=== PATIENT | male | born 1940 | race Caucasian/White ===

== ENCOUNTER 2017-10-05 12:38 | Outpatient (CLI) | payer MEDICARE, OTHER | END 2017-10-05 12:39 | disposition home or self-care (01) | LOC: BICMRI 12:38 | PROVIDERS: ATTEND General Practice | DX: M75.102 Unspecified rotator cuff tear or rupture of left shoulder, not specified as traumatic (principal); M12.9 Arthropathy, unspecified; S46.212A Strain of muscle, fascia and tendon of other parts of biceps, left arm, initial encounter ==

== ENCOUNTER 2018-07-10 12:49 | Outpatient (CLI) | payer MEDICARE ==
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
== END 2018-07-10 12:50 | disposition home or self-care (01) ==
LOC: TBSIIMAG 12:49
PROVIDERS: ATTEND Neurological Surgery
DX: M54.2 Cervicalgia (principal); M47.892 Other spondylosis, cervical region
CPT/HCPCS: 72040

== ENCOUNTER 2018-12-26 07:40 | Day surgery (SDC) | payer MEDICARE ==
[2018-12-25 10:50] VITALS: BMI 28.0
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
[2018-12-26] MEDS ORDERED: Fentanyl 100 MCG/2 ML VIAL ONE (08:01)
[2018-12-26] MEDS ORDERED: Levofloxacin 500 mg/D5W 100 ml Premix Bag ONE (08:40)
[2018-12-26] MEDS ORDERED: Clindamycin/D5W 900 mg/50 ml Premix Bag ONE (08:40)
[2018-12-26 08:57] LABS: Anion Gap 13 mmol/L (10-20); BUN (Urea Nitrogen) 25 mg/dL (8.4-25.7); Calc. Creatinine Clearance 76 mL/min (70-130); Calcium 10.1 mg/dL (7.8-10.44); Carbon Dioxide 25 mmol/L (23-31); Chloride 105 mmol/L (98-107); Estimated GFR-MDRD 80; Glucose 106 mg/dL (83-110); Potassium 4.6 mmol/L (3.5-5.1); Sodium 138 mmol/L (136-145)
[2018-12-26] MEDS ORDERED: Tamsulosin HCl 0.4 MG CAP ONE (10:23)
--- NOTE | 2018-12-26 13:02 | OP ---
DATE OF PROCEDURE: 12/26/2018 WIRE FENCE BUILDER: Da Granados PA-C. INDICATION: Pain. DIAGNOSIS: Cervical spondylitic myelopathy with numbness, neck pain and headache and spondylolisthesis. PROCEDURE PERFORMED: Anterior cervical diskectomy and fusion at C3-C4. ANESTHESIA: General. DESCRIPTION OF PROCEDURE: The patient was brought into the operating room and placed under general anesthesia. He was placed on table in supine position. A transverse incision was planned over the lateral aspect of the neck on the right. After prepping and draping and after an appropriate operative pause, the incision was created. The underlying platysma muscle was identified and incised. A blunt tissue plane anterior to the sternocleidomastoid muscle was used to gain access to the prevertebral space. Self-retaining retractors were placed for optimal exposure. A C-arm image was obtained to confirm the appropriate level. An annulotomy was then performed at the C3-C4 disk space. All disk material as well as anterior and posterior osteophytes were removed. After complete decompression, a 6 mm lordotic PEEK cage packed with allograft and autograft were placed within the interbody space. An anterior cervical plate was then fashioned from the spine and secured with a total of 4 fixed screws. Midline and lateral structures were inspected and found to be free from significant trauma. The wound was irrigated. Hemostasis was maintained throughout. The wound was then closed in anatomic layers and a pressure dressing was applied. There were no known procedural complications. Job ID: [id number]
[2018-12-26] MEDS ORDERED: Lidocaine 2% PF 5 ML VIAL ONE (16:35)
[2018-12-26] MEDS ORDERED: Glycopyrrolate 0.2 MG/ML 5 ML SYRINGE ONE (16:35)
[2018-12-26] MEDS ORDERED: Dexamethasone 20 MG/5 ML VIAL ONE (16:35)
[2018-12-26] MEDS ORDERED: PROPOFOL 200 MG/20 ML VIAL ONE (16:35)
[2018-12-26] MEDS ORDERED: Rocuronium Bromide 10 MG/ML (10ML VIAL) ONE (16:35)
[2018-12-26] MEDS ORDERED: Ondansetron PF 4 MG/2 ML Vial ONE (16:35)
[2018-12-26] MEDS ORDERED: PHENYLEPHRINE-NS 100 MCG/ML 10 ML SYRINGE ONE (16:35)
== END 2018-12-26 11:54 | disposition home or self-care (01) ==
LOC: SDC 07:40
PROVIDERS: ATTEND Neurological Surgery
PROC: 0RG10A0 Fusion of Cervical Vertebral Joint with Interbody Fusion Device, Anterior Approach, Anterior Column, Open Approach (ICD-10-PCS; principal; 2018-12-26)
PROC: 0RT30ZZ Resection of Cervical Vertebral Disc, Open Approach (ICD-10-PCS; 2018-12-26)
DX: M47.12 Other spondylosis with myelopathy, cervical region (principal); M43.12 Spondylolisthesis, cervical region; M48.02 Spinal stenosis, cervical region; E78.00 Pure hypercholesterolemia, unspecified; G43.909 Migraine, unspecified, not intractable, without status migrainosus; Z79.1 Long term (current) use of non-steroidal anti-inflammatories (NSAID); Z79.899 Other long term (current) drug therapy; Z88.0 Allergy status to penicillin; Z96.653 Presence of artificial knee joint, bilateral
CPT/HCPCS: 20930; 20936; 22551; 22845; 22853; 76000; 80048; 93005; C1713; C1776; 93010; J0131; J1100; J1956; J2001; J2405; J2704; J3010; J3490

== ENCOUNTER 2019-07-10 18:21 | Observation (INO) | payer MEDICARE ==
[2019-07-10] MEDS ORDERED: Labetalol HCl 100 MG/20 ML VIAL SLOW IVP PRN (20:59)
[2019-07-10] MEDS ORDERED: hydrALAZINE 20 MG/ML VIAL SLOW IVP PRN (20:59)
[2019-07-10 23:18] VITALS: BMI 28.8
[2019-07-11] MEDS ORDERED: Bisacodyl 10 MG SUPP PR PRN (01:48)
[2019-07-11] MEDS ORDERED: Guaifenesin DM 100-10/5 ML UDCUP PO PRN (01:48)
[2019-07-11] MEDS ORDERED: Acetaminophen 325 MG TAB PO PRN (01:48)
[2019-07-11] MEDS ORDERED: HYDROcodone/Acetaminophen 5/325 mg Tablet PO PRN (01:48)
[2019-07-11] MEDS ORDERED: Senokot S 8.6-50 MG TAB PO PRN (01:48)
[2019-07-11] MEDS ORDERED: Meloxicam 7.5 MG TAB PO PRN (01:53)
--- NOTE | 2019-07-11 02:29 | HP ---
REASON FOR ADMISSION: TIA. 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 He was staggering while he was walking. He could not hold himself. This lasted for 15 minutes or so. It happened around 1:30 p.m. His coworkers took him home. From home, his called EMS and the patient was taken to [facility], from where he was transferred here. The patient states in 2 hours he became completely normal. He also had right-sided weakness, which has all resolved at present. The at bedside mentions that the coworkers mentioned that he appeared dazed and was slurring his speech. He also mentions that he has had ultrasound of carotid done last year and where he was told he had 40% stenosis. No prior history of CVA. PAST MEDICAL AND SURGICAL HISTORY: History of migraine, dyslipidemia, hypertension, osteoarthritis, prior history of renal stones, anterior cervical diskectomy of C3-C4. Prior echo in December 2015 showed EF of 55%. CURRENT MEDICATIONS: The patient is on; 1. Atorvastatin 20 mg daily. 2. Lisinopril with hydrochlorothiazide 10/12.5 mg p.o. daily. 3. Mobic 15 mg p.o. daily p.r.n. 4. He has taken one dose of terbinafine for toenail fungus. ALLERGIES: PENICILLIN. PERSONAL HISTORY: Does not abuse alcohol or drugs. No history of smoking. FAMILY HISTORY: Mother at the age of 83 years from [place]. Father had colon cancer and of complications at the age of 69. A brother and sister have had history of [place]. A younger brother of tongue cancer with metastasis at the age of 71 years. CODE STATUS: Full. Power of bar host is his . REVIEW OF SYSTEMS: CONSTITUTIONAL: Negative for weight loss or gain, ability to conduct usual activities. SKIN: Negative for rash, itching. EYES: Negative for double vision, pain. ENT/MOUTH: Negative for nose bleeding, neck stiffness, pain, tenderness. CARDIOVASCULAR: Negative for palpitations, dyspnea on exertion, orthopnea. RESPIRATORY: Negative for shortness of breath, wheezing, cough, hemoptysis, fever or night sweats. GASTROINTESTINAL: Negative for poor appetite, abdominal pain, heartburn, nausea , vomiting, constipation, or diarrhea. GENITOURINARY: Negative for urgency, frequency, dysuria, nocturia. MUSCULOSKELETAL: Negative for pain, swelling. NEUROLOGIC/PSYCHIATRIC: Negative for anxiety, depression. ALLERGY/IMMUNOLOGIC: Negative for skin rash, bleeding tendency. PHYSICAL EXAMINATION: GENERAL: The patient is a 78-year-old male, who is currently not in any acute distress. VITAL SIGNS: Blood pressure 108/60, pulse 80 per minute, respiratory rate 16 per minute, saturating 100% on room air, temperature 97.8 degrees Fahrenheit. NECK: Supple. No elevated JVD. HEENT: Eyes; extraocular muscles intact. Pupils reacting to light. Oral cavity, mucous membranes are dry. No exudates or congestion. CARDIOVASCULAR: S1 and S2 heard, regular rhythm. RESPIRATORY: Air entry 1+ bilateral. No rales or rhonchi. ABDOMEN: Soft, bowel sounds heard. No tenderness, rigidity, or guarding. EXTREMITIES: No peripheral edema or calf tenderness. VASCULAR SYSTEM: Peripheral pulses 2+ bilateral. No ischemic ulcerations or gangrene. CENTRAL NERVOUS SYSTEM: No gross focal motor deficits noted. The patient is right-handed. Strength is 5 x 5 in all 4 extremities. Reflexes are 2+ bilateral. Babinski is downgoing. Cranial nerves are grossly intact. PSYCHIATRIC: The patient's mood is euthymic. No hallucinations or delusions. LABORATORY DATA: The patient has had a CT brain done at [facility], which shows no acute intracranial abnormality. White count of 10, H and H 14 and 47, platelet count 211, MCV 95 with 75% neutrophils. PT/INR, PTT within normal limits. Electrolytes stable. BUN 21, creatinine 0.9, serum glucose 91. Liver enzymes within normal limits. One set of cardiac enzymes are negative. Albumin is 4.6. UA is negative for any infection. Chest x-ray done shows no acute cardiopulmonary abnormalities. EKG done shows normal sinus rhythm at 61 beats per minute. There is questionable Q-waves in V2 , V3. CLINICAL IMPRESSION AND PLAN: The patient will be under observation on stroke unit for transient ischemic attack like symptoms with right-sided weakness. It is unclear if he just syncopized. We will obtain orthostatic blood pressures. He will be gently hydrated with normal saline at 100 mL/hour for a total of 1 L. He will be on aspirin and Lipitor. We will hold off on any blood pressure medications as his systolic pressures are around 100. MRI brain and ultrasound carotids will be obtained. He has had prior history of 40% stenosis in one of the carotids, he is unclear which side. Echo for LV function. If needed, a Neurology consultation will be obtained in the morning. PT, OT, and speech evaluations will be requested. If the patient ambulates well, and his MRI is negative, he can be safely discharged in the morning. Job ID: [id number] [facility]
[2019-07-11] MEDS: Sodium Chloride 0.9% 1,000 ML IV SCH ×2 (02:58→12:00)
[2019-07-11 04:35] LABS: #Basophils 0.1 thou/uL (0.0-0.2); #Eosinphils 0.3 thou/uL (0.0-0.7); #Monocytes 0.8 thou/uL (0.11-0.59); %Basophils 1.2 % (0.0-1.0); %Eosinophils 4.9 % (0.0-10.0); %Lymphocytes 32.6 % (21.0-51.0); %Monocytes 13.1 % (0.0-10.0); %Neutrophils 48.3 % (42.0-75.0); Hemoglobin 14.3 g/dL (14.0-18.0); Mean Corpuscular HGB CONC 33.9 g/dL (32.0-36.0); Mean Corpuscular Hemoglobin 32.5 pg (27.0-31.0); Platelet Count 213 thou/uL (130-400); RBC Distribution Width 12.2 % (11.5-14.5); Red Blood Cell (RBC) Count 4.41 mill/uL (4.70-6.10); White Blood Cell (WBC) Count 6.3 thou/uL (4.8-10.8)
[2019-07-11 04:57] LABS: Anion Gap 12 mmol/L (10-20); BUN (Urea Nitrogen) 21 mg/dL (8.4-25.7); Calc. Creatinine Clearance 85 mL/min (70-130); Carbon Dioxide 26 mmol/L (23-31); Cardiac Risk 3.7 (Less than 4.5); Chloride 105 mmol/L (98-107); Cholesterol 112 mg/dl (< 200 Desired); Estimated GFR-MDRD 89; Glucose 92 mg/dL (83-110); HDL Cholesterol 30 mg/dL (>60 Neg Risk); LDL Cholesterol, Calculated 69 mg/dL; Potassium 3.8 mmol/L (3.5-5.1); Sodium 139 mmol/L (136-145); Triglycerides 64 mg/dL (Less than 150)
--- NOTE | 2019-07-11 08:53 | MRI ---
MRI BRAIN WITHOUT CONTRAST: HISTORY: Right-sided weakness, TIA CORRELATION: CT scan from 07/10/2019. FINDINGS: No restricted diffusion is seen. The ventricular size is appropriate and the basilar cisterns are pat ent. No evidence of acute infarct, hemorrhage, midline shift or abnormal extra-axial fluid collections is seen. The visualized paranasal sinuses and mastoid air cells are well-aerated. IMPRESSION: No evidence of acute intracranial process.
[2019-07-11] MEDS ORDERED: Aspirin Chewable 81 MG TAB PO SCH (09:00)
[2019-07-11] MEDS ORDERED: Famotidine 20 MG TAB PO SCH (09:00)
[2019-07-11] MEDS ORDERED: Atorvastatin Calcium 20 MG TAB PO SCH (09:00)
[2019-07-11] MEDS ORDERED: Enoxaparin Sodium 40 MG/0.4 ML SYRINGE SC SCH (09:00)
--- NOTE | 2019-07-11 09:34 | ULT ---
BILATERAL CAROTID DUPLEX ULTRASOUND: HISTORY: TIA TECHNIQUE: Grayscale, color-flow and spectral Doppler ultrasound imaging of the extracranial carotid artery syst ems was performed bilaterally. FINDINGS: There is plaque formation on both sides. The peak systolic velocity in the right ICA measures 92 cm/s with an end-diastolic velocity of 19 cm/ s and a systolic ratio of 0.82. The peak systolic velocity in the left ICA measures 69 cm/s with an end-diastolic velocity of 17 cm/s and a systolic ratio of 0.66. Flow in left vertebral remains antegrade. The right vertebral artery is not visualized. There is sugg estion of occlusion of the distal right ICA. 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 CTA of the head and neck is recommended.
[2019-07-11] MEDS ORDERED: ISOVUE-370 76%-LOCM 1 ML ONE (12:00)
[2019-07-11 12:01] VITALS: TEMP 98.4
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
[2019-07-11 14:46] VITALS: BP 125/58
[2019-07-11] MEDS ORDERED: Prevnar 13-Val Conj/PF 0.5 ML SYRINGE IM ONE (21:00)
[2019-07-11] MEDS ORDERED: Lisinopril/Hydrochlorothiazide 10 mg/12.5 mg Tablet PO SCH (21:00)
--- NOTE | 2019-07-12 12:24 | DIS ---
DATE OF ADMISSION: 07/10/2019 DATE OF DISCHARGE: 07/11/2019 DISCHARGE DIAGNOSES: Transient ischemic attack. 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 He presented to the [facility], where he initially had a negative CT, reported that his symptoms resolved completely over about a 2-hour time frame and he was completely back to normal. Upon transfer here, his other labs were largely unremarkable as was his EKG and chest x-ray. HOSPITAL COURSE: The patient was placed on observation for TIA. On telemetry, had no cardiac ectopy or arrhythmias to speak of. He underwent an MRI of the brain, which was negative for any acute processes. He had a carotid Doppler, showing concern for occlusion of the distal right ICA. Subsequent CTA of the head and neck revealed no acute intracranial abnormalities. Dense calcifications and atherosclerotic plaque were noted. However, there was no occlusive disease as what had been previously noted on the ultrasound. Echocardiogram reveals ejection fraction of 60% to 65%. Mild to moderate aortic regurgitation and [id number] tricuspid regurgitation. The patient felt completely back to baseline and had been up and around and was very eager for discharge. PHYSICAL EXAMINATION: VITAL SIGNS: His temperature is 98.4, pulse 66, respirations 16, O2 saturation 95% on room air, BP 125/58. GENERAL: He is awake, alert, oriented, pleasant, cooperative. HEENT: NILS. No OP lesions. HEART: Regular rate and rhythm. No murmurs. LUNGS: Clear bilaterally. ABDOMEN: Soft, nontender, and nondistended. EXTREMITIES: No cyanosis, clubbing, or edema. NEUROLOGIC: No focal deficits. DISPOSITION: The patient is discharged to home. ACTIVITY: As tolerated. He will be on a heart healthy diet. MEDICATIONS: He will be on, 1. Aspirin 81 mg p.o. daily. 2. Atorvastatin 40 mg p.o. daily. He will continue with meloxicam and terbinafine. He will stop the lower dose atorvastatin 20 mg, and he is encouraged to hold off on his antihypertensives until he is able to monitor his blood pressure over several days as his blood pressure remained very stable even on the low side of normal without his blood pressure medicines being given and there was some concern that these may have been contributory to his initial symptoms. FOLLOWUP: He is to follow up with his primary care provider in [place] and he can return to the hospital should he have any problems prior to that time. Job ID: [id number]
== END 2019-07-11 16:19 | disposition home or self-care (01) ==
LOC: ERS 18:21 → 2SE 22:52
PROVIDERS: ADMIT Internal Medicine; ATTEND Internal Medicine
DX: G45.9 Transient cerebral ischemic attack, unspecified (principal); I08.2 Rheumatic disorders of both aortic and tricuspid valves; E78.5 Hyperlipidemia, unspecified; I10 Essential (primary) hypertension; M19.90 Unspecified osteoarthritis, unspecified site; Z79.899 Other long term (current) drug therapy; Z88.0 Allergy status to penicillin
CPT/HCPCS: 70496; 70498; 70551; 80048; 80061; 85025; 93005; 93306; 93880; 96372; 97139 ×4; 99285; G0378 ×2; 36415; J1650; Q9966

== ENCOUNTER 2020-03-23 14:55 | Inpatient (IN) | payer MEDICARE, OTHER ==
[2020-03-23 16:29] VITALS: BMI 27.0
[2020-03-23] MEDS ORDERED: Ondansetron ODT 4 MG TAB PO PRN (17:38)
[2020-03-23] MEDS ORDERED: Ondansetron PF 4 MG/2 ML Vial IVP PRN (17:38)
[2020-03-23] MEDS ORDERED: Sodium Chloride 0.9% (PF) 10 ML VIAL FS PRN (17:42)
[2020-03-23] MEDS: Sodium Chloride 0.9% 1,000 ML IV SCH (18:16)
--- NOTE | 2020-03-23 18:39 | HP ---
PRIMARY CARE PHYSICIAN: AMAN Abbott. CHIEF COMPLAINT: Melena. HISTORY OF PRESENT ILLNESS: The patient is an 79-year-old male with a past medical history significant for hypertension, hyperlipidemia, and TIA, who presents as a direct admit to the hospital for the above complaint. The patient originally presented to the [facility] on 03/22 with a chief complaint of dark stools. He reports that he had approximately eight dark stools over the previous two days. He denies any bright red blood in the toilet. He reports some associated lower abdominal pain described as bloating or gassy, dull and aching, and constant. At that time, he denied any fever or chills. He denied any hematemesis, vomiting, or diarrhea. He denied any urinary symptoms. No history liver disease. CT of the abdomen and pelvis showed diverticular disease, a right inguinal hernia, multiple hepatic cysts and a kidney stone. Hemoglobin was 11, after 1 L of fluids, it was diluted down to 10.3. The patient did report some associated lightheadedness. The patient was scheduled to have a hip replacement in the next two weeks. He has been taking meloxicam and tramadol. He reports he has been taking meloxicam for at least the past year. He also reports that he had a colonoscopy in October by Dr. Moreira, his card clothier with no irregular findings. At that time, he was discharged home with a PPI, orders to stop his meloxicam and follow up with GI in the next several days to repeat hemoglobin and hematocrit. He reports that today he went to his card clothier and his hemoglobin had dropped down to 9, so he was directly admitted to the hospital. Currently, he says that he has not had any more dark stools since his discharge from [facility]. He reports that when he does pass gas and wipe that he does have some dark residue on the toilet tissue. He still reports some mild abdominal discomfort described as gas and bloating. He has no vomiting, diarrhea, or dysuria. He has no fever, no chills. He reports intermittent light headedness. PAST MEDICAL HISTORY: 1. Hyperlipidemia. 2. Hypertension, no medications. 3. TIA 2019. 4. Kidney stones. PAST SURGICAL HISTORY: 1. Cholecystectomy. 2. Bilateral knee replacements. 3. Left rotator cuff. 4. Right rotator cuff. 5. Stent for kidney stones. SOCIAL HISTORY: The patient lives with his family. He is a former smoker, quit in 1964. No alcohol intake. No illicit drug use. He normally walks without any assistive devices, only lately he has been using a roller walker. FAMILY HISTORY: Noncontributory for this case. ALLERGIES: PENICILLIN. HOME MEDICATIONS: 1. Atorvastatin 20 mg p.o. daily. 2. Meloxicam 15 mg p.o. daily. This has been held since 03/22. REVIEW OF SYSTEMS: All review of systems are negative unless otherwise stated in HPI. PHYSICAL EXAMINATION: VITAL SIGNS: Temperature 97.9, blood pressure 136/72, pulse 91, respirations 18 , 97% on room air, 0/10 pain. CONSTITUTIONAL: The patient is alert and oriented to person, place, and time. No acute distress. Stable vital signs. HEENT: Head atraumatic and normocephalic. Eyes, PERRLA. Extraocular muscles intact. ENT, oropharynx is clear. Uvula midline. Moist mucous membranes. No oral lesions. NECK: Full range of motion. No cervical spinal tenderness. No JVD. No cervical adenopathy. RESPIRATORY: Chest, the patient has regular respirations, even, nonlabored. Clear to auscultation. No rhonchi, wheezes, or rales. CARDIOVASCULAR: S1, S2 appreciated. No murmurs, rubs, or gallops. ABDOMEN: Soft, mildly tender to the mid lower pelvic region. Active bowel sounds. No guarding. No rigidity. No rebound. Negative Rovsing sign. Negative Burgess sign. No abdominal bruit auscultated. BACK: Full range of motion. No central spinous tenderness. No CVA tenderness. EXTREMITIES: Upper extremities, full range of motion, normal strength, sensation intact. Palpable radial pulses. Lower extremities, full range of motion, normal strength, sensation intact. Palpable pedal pulses. No swelling. NEUROLOGIC: The patient is alert and oriented to person, place, and time. Moving all extremities well. No focal deficits. Normal gait. PSYCHIATRIC: A and O x3. Normal affect. LABS AND DIAGNOSTICS: The patient presents as a direct admit. He reports that he had an H and H prior to coming to the ER to the hospital. He reports a hemoglobin of 9. IMPRESSION AND PLAN: 1. Gastrointestinal bleed. We will admit the patient to medical floor inpatient status. Expected length of stay greater than two midnights. The patient presented to the [place] on 03/22 with a hemoglobin of 11, after 1 L of fluid down to 10.3. He was discharged with PPIs, instructed to follow up with his GI, whom he saw today. Repeat hemoglobin was in the 9 range. The patient reports some lightheadedness, but otherwise is asymptomatic. He has had no stool since, but reports black residue on toilet tissue after wiping. We will consult Dr. Moreira. We will place patient on a clear liquid diet. We will check hemoglobin, hematocrit q.6 hours. Get a PT/INR baseline type and cross, iron studies, baseline EKG and swab for preop COVID. We will give IV fluids, PPI, analgesia, and Zofran as needed. We will obtain orthostatic vital signs. We will check a CBC and a CMP for baseline and repeat in the a.m. 2. Acute blood loss anemia, likely secondary to gastrointestinal bleed. 3. Hyperlipidemia. We will restart patient's atorvastatin once reconciled by nursing. 4. Hypertension. The patient presents with a normal blood pressure. Takes no medications for his blood pressure. We will continue to monitor blood pressure and vital signs. 5. SCDs for deep venous thrombosis prophylaxis. Protonix for gastrointestinal prophylaxis. The patient is full code. SHLMOO is his , Lakisha. She goes by Yovani, # [phone]. 6. Discussed the case with Dr. Norris. Job ID: [id number] [id number]
[2020-03-23 19:08] LABS: #Basophils 0.1 thou/uL (0.0-0.2); #Eosinphils 0.2 thou/uL (0.0-0.7); #Lymphocytes 2.3 thou/uL (1.20-3.40); #Monocytes 0.6 thou/uL (0.11-0.59); #Neutrophils 5.8 thou/uL (1.40-6.50); %Basophils 0.7 % (0.0-1.0); %Eosinophils 2.1 % (0.0-10.0); %Lymphocytes 25.6 % (21.0-51.0); %Monocytes 6.9 % (0.0-10.0); %Neutrophils 64.7 % (42.0-75.0); Hemoglobin 8.5 g/dL (14.0-18.0); Mean Corpuscular HGB CONC 33.4 g/dL (32.0-36.0); Mean Corpuscular Hemoglobin 32.9 pg (27.0-31.0); Mean Corpuscular Volume 98.3 fL (78.0-98.0); Mean Platelet Volume 8.2 fL (7.4-10.4); Platelet Count 205 thou/uL (130-400); RBC Distribution Width 12.7 % (11.5-14.5); Red Blood Cell (RBC) Count 2.57 mill/uL (4.70-6.10)
[2020-03-23 19:12] LABS: PTT 29.1 sec (22.9-36.1); Prothrombin Time 13.4 sec (12.0-14.7)
--- NOTE | 2020-03-23 19:15 | CON ---
DATE OF CONSULTATION: 03/23/2020 CHIEF COMPLAINT: Weakness and black stools. HISTORY OF PRESENT ILLNESS: Mr. Cortés is an 79-year-old man, who went to the emergency room in [place] last night with black stools and anemia and was referred into our office today. He reports passing 3 to 4 black stools per day starting on Monday, three days ago. He has had pain around his periumbilical area, which is cramping and mild on and off since Monday. He has had no vomiting, but has had some nausea. He feels weak and has been pale. He did receive a liter of fluid in the emergency room yesterday, initially felt somewhat better after that. Today, he still is concerned about ongoing bleeding and has continued weakness. He quit taking aspirin a few weeks ago, but he has been on meloxicam up until Monday and he stopped that due to the bleeding. He has not been on a proton pump inhibitor, but was planning to start one today. He had a colonoscopy back on November 13, 2019, which was negative except for diverticulosis and a 3 mm adenoma removed from the colon. PAST MEDICAL HISTORY: Arthritis, hypertension, TIA, hyperlipidemia, and history of colon polyps. PAST SURGICAL HISTORY: Cervical diskectomy with hardware placed, knee replacement bilaterally, and shoulder surgery. FAMILY HISTORY: Positive for colon cancer in his father at age greater than 60. SOCIAL HISTORY: No alcohol, tobacco, or drugs. ALLERGIES: PENICILLIN. MEDICATIONS: Prior to admission: 1. Atorvastatin. 2. Meloxicam. 3. Fish oil. 4. CoQ10. REVIEW OF SYSTEMS: Negative x10 systems reviewed except as stated in history of present illness. PHYSICAL EXAMINATION: VITAL SIGNS: Temperature 97.7, pulse 91, and blood pressure 136/72. GENERAL: He is in no acute distress. Alert and oriented x3. HEENT: Eyes have no scleral icterus. Oropharynx is clear without lesions. No cervical or supraclavicular lymphadenopathy. LUNGS: Clear to auscultation bilaterally. HEART: Regular rate and rhythm without murmur. ABDOMEN: Soft, nontender, and nondistended. Bowel sounds are present. EXTREMITIES: No lower extremity edema. Cranial nerves are grossly intact. LABORATORY DATA: White blood cell count 9.0, hemoglobin is 9.8 today, down from 11 yesterday, down from 14.3 back in June. INR 1.0. Creatinine 0.81. Bilirubin 0.5, AST 22, ALT 23, and alkaline phosphatase 82. IMPRESSION: 1. Upper gastrointestinal bleed presenting with melena and a significant drop in his hemoglobin and symptomatic anemia with weakness. 2. Anemia of acute blood loss. RECOMMENDATIONS: 1. Continue to follow trend of the hemoglobin. 2. IV fluids. 3. Esophagogastroduodenoscopy. 4. COVID rapid screen. ADDENDUM: I ordered a rapid COVID screen for the patient as a negative COVID test is required for the OR to proceed with endoscopy. I was informed by the firm administrator in charge of the COVID testing that the patient does not meet criteria for rapid COVID test. The patient has dropped his hemoglobin to 8.5. His pulse is 83, blood pressure 98/52. I have scheduled this procedure for early tomorrow morning, yet it appears this will be potentially delayed further pending COVID testing results. Job ID: [id number] MTDD
[2020-03-23 19:25] LABS: ALT (SGPT) 15 U/L (8-55); AST (SGOT) 16 U/L (5-34); Albumin 3.8 g/dL (3.4-4.8); Alkaline Phosphatase 71 U/L (40-110); Anion Gap 10 mmol/L (10-20); BUN (Urea Nitrogen) 32 mg/dL (8.4-25.7); Bilirubin, Total 0.5 mg/dL (0.2-1.2); Calc. Creatinine Clearance 93 mL/min (70-130); Calcium 8.6 mg/dL (7.8-10.44); Carbon Dioxide 23 mmol/L (23-31); Chloride 105 mmol/L (98-107); Estimated GFR-MDRD Greater than 90; Globulin 1.7 g/dL (2.4-3.5); Glucose 141 mg/dL (83-110); Iron 115 ug/dL (65-175); Iron Binding Capacity, Total 284 mcg/dL (261-462); Potassium 3.7 mmol/L (3.5-5.1); Protein, Total 5.5 g/dL (5.8-8.1); Sodium 134 mmol/L (136-145)
[2020-03-23 19:26] LABS: Iron 115 ug/dL (65-175); Iron Binding Capacity, Total 288 mcg/dL (261-462)
[2020-03-23] MEDS: Pantoprazole 40 MG VIAL IVP SCH (19:35)
[2020-03-23 21:52] LABS: Bacteria/HPF None Seen HPF (None Seen); Bilirubin Negative (Negative); Blood, Urine Negative (Negative); Clarity Clear (Clear); Glucose, Urine (Dipstick) Normal (Negative); Ketone, Urine Negative (Negative); Leukocyte Negative Leu/uL (Negative); Mucous/LPF Rare LPF (<2+); Nitrite Negative (Negative); Protein, Urine (Dipstick) Negative (Neg-Trace); RBC/HPF 0-3 HPF (0-3); Specific Gravity, Urine 1.021 (1.002-1.036); Squamous Epithelial None Seen HPF (0-3); Urobilinogen Normal mg/dL (Less than 2); WBC/HPF 0-3 HPF (0-3)
[2020-03-23 23:56] LABS: Hemoglobin 7.5 g/dL (14.0-18.0)
[2020-03-24] MEDS: Acetaminophen 325 MG TAB PO PRN ×2 (05:22)
[2020-03-24] MEDS: Sodium Chloride 0.9% 1,000 ML IV SCH ×2 (06:35→20:42)
[2020-03-24] MEDS: Pantoprazole 40 MG VIAL IVP SCH ×2 (08:03→20:34)
[2020-03-24 08:07] LABS: #Basophils 0.1 thou/uL (0.0-0.2); #Eosinphils 0.2 thou/uL (0.0-0.7); #Monocytes 0.5 thou/uL (0.11-0.59); #Neutrophils 2.7 thou/uL (1.40-6.50); %Eosinophils 3.7 % (0.0-10.0); %Lymphocytes 36.3 % (21.0-51.0); %Monocytes 9.7 % (0.0-10.0); %Neutrophils 49.2 % (42.0-75.0); Hemoglobin 8.2 g/dL (14.0-18.0); Mean Corpuscular Hemoglobin 33.1 pg (27.0-31.0); Mean Corpuscular Volume 97.2 fL (78.0-98.0); Mean Platelet Volume 7.7 fL (7.4-10.4); Platelet Count 169 thou/uL (130-400); RBC Distribution Width 13.2 % (11.5-14.5); Red Blood Cell (RBC) Count 2.47 mill/uL (4.70-6.10); White Blood Cell (WBC) Count 5.5 thou/uL (4.8-10.8)
[2020-03-24 08:31] LABS: ALT (SGPT) 13 U/L (8-55); AST (SGOT) 14 U/L (5-34); Albumin 3.3 g/dL (3.4-4.8); Alkaline Phosphatase 63 U/L (40-110); Anion Gap 11 mmol/L (10-20); BUN (Urea Nitrogen) 23 mg/dL (8.4-25.7); Bilirubin, Total 0.5 mg/dL (0.2-1.2); Calc. Creatinine Clearance 92 mL/min (70-130); Calcium 8.1 mg/dL (7.8-10.44); Carbon Dioxide 24 mmol/L (23-31); Chloride 107 mmol/L (98-107); Estimated GFR-MDRD Greater than 90; Globulin 1.4 g/dL (2.4-3.5); Glucose 97 mg/dL (83-110); Potassium 3.7 mmol/L (3.5-5.1); Protein, Total 4.7 g/dL (5.8-8.1); Sodium 138 mmol/L (136-145)
--- NOTE | 2020-03-24 11:01 | OP ---
DATE OF PROCEDURE: 03/24/2020 PROCEDURE PERFORMED: Esophagogastroduodenoscopy. PREMEDICATION: Given by Anesthesiology Department. PREPROCEDURE DIAGNOSES: 1. Melenic stool and anemia, suggestive of upper gastrointestinal bleeding. 2. Anemia. POSTPROCEDURE DIAGNOSIS: Normal upper endoscopy. DESCRIPTION OF PROCEDURE: Written consents were obtained prior to procedure. After adequate sedation, the forward-viewing endoscope was advanced down the stomach under direct vision to the third portion of duodenum. The third portion and second portion appeared normal. The duodenal bulb appeared normal. The pylorus was patent. The gastric antrum, body, fundus, and cardia all appeared normal. Retroflexion did not show any abnormality. There was no mucosal abnormality or any indication of hemorrhage seen. The GE junction with the regular Z-line is located at 40 cm from the incisors. The lower, mid, and upper esophagus appeared normal. The stomach was then decompressed, the instrument was then fully removed. The patient tolerated the procedure well. ASSESSMENT: Normal upper endoscopy to third portion of duodenum without any obvious source of gastrointestinal bleeding. RECOMMENDATION: 1. Continue to trend blood count. 2. Bleeding scan today as patient had a significant drop,in his blood count from baseline. 3. If bleeding scan is negative, will proceed with bowel prep to follow with colonoscopy tomorrow. Job ID: [id number] [facility]
[2020-03-24 12:11] LABS: Hemoglobin 8.7 g/dL (14.0-18.0)
[2020-03-24] MEDS ORDERED: PROPOFOL 200 MG/20 ML VIAL ONE (13:20)
[2020-03-24] MEDS ORDERED: PHENYLEPHRINE-NS 100 MCG/ML 10 ML SYRINGE ONE (13:20)
[2020-03-24 14:03] LABS: SARS-CoV-2 MS2 Positive; SARS-CoV-2 N Gene Negative; SARS-CoV-2 S Gene Negative; SARS-CoV-2 orf1ab Negative
--- NOTE | 2020-03-24 15:00 | NM ---
NUCLEAR MEDICINE GI BLEEDING SCAN: HISTORY: GI bleed, melena , negative EGD Radiopharmaceutical: 28.4 mCi technetium 99m labeled RBCs injected intravenously FINDINGS: There is normal accumulation of tracer within the vascular system. No abnormal areas of tracer localization are seen in the abdomen and pelvis in a pattern of increased focal uptake and tracer movement with peristalsis. Physiologic activity is present within the urinary bladder, likely from a small amount of free techne tium. IMPRESSION: No evidence of active GI bleeding during imaging.
[2020-03-24] MEDS: traMADol HCl 50 MG TAB PO PRN (16:29)
[2020-03-24] MEDS ORDERED: GoLYTELY 4,000 ml Bottle PO SCH (17:00)
[2020-03-24] MEDS ORDERED: Morphine 2 MG/ML VIAL SLOW IVP PRN (18:04)
[2020-03-24] MEDS ORDERED: Acetaminophen/Codeine 30-300mg Tablet PO PRN (18:04)
[2020-03-24 18:10] LABS: Hemoglobin 8.9 g/dL (14.0-18.0)
--- NOTE | 2020-03-24 18:42 | PDOC.HOSPP ---
- Subjective Encounter Date: 03/24/20 Encounter Time: 10:15 Subjective: pt up in bed complains of pain to his right hip. - Objective Vital Signs & Weight: Vital Signs (12 hours) Temp Pulse Resp BP Pulse Ox 03/24/20 16:40 97.5 F L 82 18 135/70 97 03/24/20 11:46 97.8 F 79 18 121/65 100 03/24/20 09:50 97.9 F 78 20 115/66 98 03/24/20 08:01 97.3 F L 76 20 101/61 98 03/24/20 08:00 98 Weight Admit Weight 175 lb 3.2 oz Weight 175 lb 3.2 oz I&O: 03/23/20 03/24/20 03/25/20 06:59 06:59 06:59 Intake Total 2200 Output Total 750 Balance 1450 Result Diagrams: 03/24/20 17:52 03/24/20 07:59 Hospitalist ROS - Review of Systems Cardiovascular: denies: chest pain, palpitations, orthopnea, paroxysmal noc. dyspnea, edema, light headedness, other Gastrointestinal: denies: nausea, vomiting, abdominal pain, diarrhea, constipation, melena, hematochezia, other Genitourinary: denies: dysuria, frequency, incontinence, hematuria, retention, other - Medication Medications: Active Medications Generic Name Dose Route Start Last Admin Trade Name Freq PRN Reason Stop Dose Admin Acetaminophen 650 mg 03/23/20 17:38 03/24/20 05:22 Tylenol PO 650 mg Q4H PRN Administration Headache/Fever/Mild Pain (1-3) Sodium Chloride 1,000 mls @ 75 mls/hr 03/23/20 17:45 03/24/20 06:35 Normal Saline 0.9% IV 1,000 mls .[id number] MISSY Administration Morphine Sulfate 2 mg 03/24/20 18:04 03/24/20 18:36 Morphine SLOW IVP 2 mg Q4H PRN Administration Moderate to Severe Pain (6-10) Pantoprazole Sodium 40 mg 03/23/20 21:00 03/24/20 08:03 Protonix IVP 40 mg BID IMSSY Administration Polyethylene Glycol/Electrolytes 4,000 ml 03/24/20 17:00 03/24/20 16:30 Golytely PO 03/24/20 22:00 4,000 ml 1700 MISSY Administration Tramadol HCl 50 mg 03/24/20 16:04 03/24/20 16:29 Ultram PO 50 mg QIDPRN PRN Administration Pain - Exam Heart: negative: RRR, no murmur, no gallops, no rubs, normal peripheral pulses, irregular, diminshed peripheral pulses, murmur present, II/IV, III/IV Respiratory: negative: CTAB, no wheezes, no rales, no ronchi, normal chest expansion, no tachypnea, normal percussion, rales, rhonchi, tachypneic, wheezes Gastrointestinal: negative: soft, non-tender, non-distended, normal bowel sounds , no palpable masses, no hepatomegaly, no splenomegaly, no bruit, no guarding, no rigidity, tender to palpation, distended, diminished bowl sounds, voluntary guarding Hosp A/P (1) Melena Code(s): K92.1 - MELENA Status: Acute (2) Hyperlipemia Code(s): E78.5 - HYPERLIPIDEMIA, UNSPECIFIED Status: Acute (3) Right hip pain Code(s): M25.551 - PAIN IN RIGHT HIP Status: Acute - Plan pt's egd normal, rbc scan normal. will undergo colonoscopy in am. pt has chronic hip pain. will order pain meds.
[2020-03-25 07:28] LABS: #Eosinphils 0.1 thou/uL (0.0-0.7); #Lymphocytes 1.4 thou/uL (1.20-3.40); #Monocytes 0.5 thou/uL (0.11-0.59); #Neutrophils 2.8 thou/uL (1.40-6.50); %Basophils 0.9 % (0.0-1.0); %Lymphocytes 28.4 % (21.0-51.0); %Monocytes 9.9 % (0.0-10.0); %Neutrophils 57.7 % (42.0-75.0); Hemoglobin 7.6 g/dL (14.0-18.0); Mean Corpuscular HGB CONC 34.3 g/dL (32.0-36.0); Mean Corpuscular Hemoglobin 33.6 pg (27.0-31.0); Mean Platelet Volume 7.8 fL (7.4-10.4); Platelet Count 177 thou/uL (130-400); RBC Distribution Width 13.6 % (11.5-14.5); Red Blood Cell (RBC) Count 2.25 mill/uL (4.70-6.10); White Blood Cell (WBC) Count 4.8 thou/uL (4.8-10.8)
[2020-03-25] MEDS: Pantoprazole 40 MG VIAL IVP SCH ×2 (08:56→19:56)
[2020-03-25] MEDS: Atorvastatin Calcium 20 MG TAB PO SCH ×2 (09:03→15:45)
[2020-03-25] MEDS ORDERED: Glycopyrrolate 0.2 MG/ML 5 ML SYRINGE ONE (11:27)
[2020-03-25] MEDS ORDERED: PHENYLEPHRINE-NS 100 MCG/ML 10 ML SYRINGE ONE ×2 (11:27→13:23)
[2020-03-25] MEDS ORDERED: PROPOFOL 200 MG/20 ML VIAL ONE (11:27)
[2020-03-25] MEDS ORDERED: Lidocaine 1% PF 5 ML VIAL ONE (11:27)
[2020-03-25] MEDS: Sodium Chloride 0.9% 1,000 ML IV SCH ×2 (13:19→20:02)
--- NOTE | 2020-03-25 13:56 | OP ---
DATE OF PROCEDURE: 03/25/2020 TRUCK OPERATOR SURGEON: None. PROCEDURE PERFORMED: Colonoscopy with snare polypectomy. INDICATIONS: 1. Melena. 2. Acute blood loss anemia. 3. The patient had a negative EGD and a negative tagged RBC scan performed yesterday. MEDICATIONS: See Anesthesia record. FINDINGS: After discussion of the risks, benefits, and alternatives of the procedure, informed consent was obtained and witnessed. Pre-endoscopic cardiopulmonary examination was satisfactory. Time-out was performed before sedation was achieved. Sedation was achieved with Anesthesia assistance in the Endoscopy Unit. Digital rectal exam was performed, which shows a large external hemorrhoidal skin tag. A Pentax adult colonoscope was inserted into the anus, passed forward to the cecum in the usual fashion. The cecal base was identified by the appendiceal orifice as well as the ileocecal valve. The terminal ileum was intubated and the ileal mucosa appeared normal. The colonoscope was slowly withdrawn in a gradual and circumferential manner with careful examination of the entire colonic mucosa. The quality of the prep was good. In the transverse colon, there was a sessile polyp measuring about 7 mm in diameter. This was completely removed with a hot snare and retrieved for pathology. Also in the transverse colon, there was a smaller polyp measuring 1 to 2 mm in diameter. This was completely removed with cold snare and retrieved for pathology. There was one more polyp in the descending colon measuring about 3 mm in diameter. This was completely removed with cold snare and retrieved for pathology. The colonic mucosa appeared normal throughout. There was no evidence of any old blood or active bleeding throughout the colon. There is diverticulosis throughout the entire colon. Retroflexion in the rectum was unremarkable. The colonoscope was completely withdrawn and the patient allowed to recover. The patient tolerated the procedure well. There were no immediate postprocedure complications. IMPRESSION: 1. A 7-mm transverse colon polyp, completely removed with hot snare and retrieved for pathology. 2. A 1-to-2 mm transverse colon polyp, completely removed with cold snare and retrieved for pathology. 3. Single 2-to 3-mm descending colon polyp, completely removed with cold snare and retrieved for pathology. 4. Pancolonic diverticulosis. 5. No old blood or active bleeding. 6. Otherwise, normal colonoscopy to the terminal ileum. RECOMMENDATIONS: 1. Advance diet. 2. Monitor H and H tomorrow. 3. If there is concern for recurrent bleeding, could consider capsule endoscopy on an outpatient basis. Job ID: [id number]
[2020-03-25] MEDS: traMADol HCl 50 MG TAB PO PRN (15:43)
[2020-03-26] MEDS: traMADol HCl 50 MG TAB PO PRN ×2 (04:01→21:33)
[2020-03-26] MEDS: Acetaminophen 325 MG TAB PO PRN ×2 (04:04→21:33)
[2020-03-26] MEDS: Sodium Chloride 0.9% 1,000 ML IV SCH (04:06)
[2020-03-26 06:41] LABS: #Eosinphils 0.2 thou/uL (0.0-0.7); #Monocytes 0.6 thou/uL (0.11-0.59); #Neutrophils 3.8 thou/uL (1.40-6.50); %Basophils 0.7 % (0.0-1.0); %Eosinophils 2.7 % (0.0-10.0); %Lymphocytes 30.1 % (21.0-51.0); %Monocytes 9.5 % (0.0-10.0); %Neutrophils 56.9 % (42.0-75.0); Hemoglobin 7.3 g/dL (14.0-18.0); Mean Corpuscular HGB CONC 33.9 g/dL (32.0-36.0); Mean Corpuscular Hemoglobin 33.7 pg (27.0-31.0); Mean Corpuscular Volume 99.4 fL (78.0-98.0); Mean Platelet Volume 8.2 fL (7.4-10.4); Platelet Count 179 thou/uL (130-400); RBC Distribution Width 14.3 % (11.5-14.5); Red Blood Cell (RBC) Count 2.15 mill/uL (4.70-6.10); White Blood Cell (WBC) Count 6.7 thou/uL (4.8-10.8)
[2020-03-26] MEDS: Atorvastatin Calcium 20 MG TAB PO SCH (09:01)
[2020-03-26 11:26] LABS: Hemoglobin 7.7 g/dL (14.0-18.0)
--- NOTE | 2020-03-26 14:11 | PRG ---
DATE OF SERVICE: 03/26/2020 SUBJECTIVE: Mr. Cortés has had no bowel movement since his colonoscopy. He is feeling lightheaded today. OBJECTIVE: VITAL SIGNS: Temperature 97.7, pulse 73, and blood pressure 108/65. GENERAL: He is in no acute distress, awake, and alert. LUNGS: Clear to auscultation bilaterally. HEART: Regular rate and rhythm without murmur. ABDOMEN: Soft, nontender, and nondistended. Bowel sounds are present. EXTREMITIES: No lower extremity edema. LABORATORY DATA: Hemoglobin was 7.3 this morning. Recheck later this morning was 7.7. IMPRESSION: 1. Gastrointestinal bleed presenting with melena. Upper endoscopy was negative for bleeding source. Colonoscopy was negative for bleeding source. 2. Anemia of acute blood loss. Reports lightheadedness this morning. In light of symptomatic anemia, I will give him an extra unit of blood today. Of note, his iron studies are more consistent with anemia of chronic disease. RECOMMENDATIONS: 1. Transfuse 1 unit RBCs today. 2. Advance to regular diet today. 3. If his hemoglobin remains stable and responds appropriately to transfusion tomorrow morning, then I would anticipate he can discharge home tomorrow. 4. We will arrange for outpatient capsule endoscopy of the small bowel to rule out a small bowel bleeding source. Again, note that his iron level is 115 with a TIBC of 284 and a ferritin of 371, which indicates anemia of chronic disease. Job ID: [id number]
--- NOTE | 2020-03-26 18:17 | PDOC.HOSPP ---
- Subjective Encounter Date: 03/26/20 Encounter Time: 13:00 Subjective: pt up in bed feels lightheaded - Objective Vital Signs & Weight: Vital Signs (12 hours) Temp Pulse Pulse Resp BP BP Pulse Ox 03/26/20 17:30 97.7 F 64 20 128/75 03/26/20 15:05 97.9 F 76 20 107/55 L 03/26/20 14:50 97.8 F 76 20 110/57 L 03/26/20 08:00 94 L 03/26/20 07:56 97.7 F 73 20 108/65 94 L Weight Admit Weight 175 lb 3.2 oz Weight 175 lb 3.2 oz I&O: 03/25/20 03/26/20 03/27/20 06:59 06:59 06:59 Intake Total 1900 1070 350 Balance 1900 1070 350 Result Diagrams: 03/26/20 11:18 03/24/20 07:59 Hospitalist ROS - Review of Systems Cardiovascular: reports: light headedness Gastrointestinal: denies: nausea, vomiting, abdominal pain, diarrhea, constipation, melena, hematochezia, other Genitourinary: denies: dysuria, frequency, incontinence, hematuria, retention, other - Medication Medications: Active Medications Generic Name Dose Route Start Last Admin Trade Name Freq PRN Reason Stop Dose Admin Acetaminophen 650 mg 03/23/20 17:38 03/26/20 04:04 Tylenol PO 650 mg Q4H PRN Administration Headache/Fever/Mild Pain (1-3) Atorvastatin Calcium 20 mg 03/25/20 09:00 03/26/20 09:01 Lipitor PO 20 mg DAILY MISSY Administration Morphine Sulfate 2 mg 03/24/20 18:04 03/24/20 18:36 Morphine SLOW IVP 2 mg Q4H PRN Administration Moderate to Severe Pain (6-10) Ondansetron HCl 4 mg 03/23/20 17:38 03/24/20 18:59 Zofran IVP 4 mg Q6H PRN Administration Nausea/Vomiting Pantoprazole Sodium 40 mg 03/26/20 09:00 03/26/20 09:01 Protonix PO 40 mg BID MISSY Administration Sodium Chloride 10 ml 03/23/20 17:31 03/26/20 09:02 Flush - Normal Saline IVF 10 ml PRN PRN Administration Saline Flush Sodium Chloride 10 ml 03/23/20 17:42 03/25/20 19:56 Normal Saline Pf FS 10 ml PRN PRN Administration RECONSTITUTION Tramadol HCl 50 mg 03/24/20 16:04 03/26/20 04:01 Ultram PO 50 mg QIDPRN PRN Administration Moderate Pain (4-6) - Exam Heart: negative: RRR, no murmur, no gallops, no rubs, normal peripheral pulses, irregular, diminshed peripheral pulses, murmur present, II/IV, III/IV Respiratory: negative: CTAB, no wheezes, no rales, no ronchi, normal chest expansion, no tachypnea, normal percussion, rales, rhonchi, tachypneic, wheezes Gastrointestinal: negative: soft, non-tender, non-distended, normal bowel sounds , no palpable masses, no hepatomegaly, no splenomegaly, no bruit, no guarding, no rigidity, tender to palpation, distended, diminished bowl sounds, voluntary guarding Extremities: negative: no cyanosis, no clubbing, no edema, 1+ LE edema, 2+ LE edema, clubbing Hosp A/P (1) Melena Code(s): K92.1 - MELENA Status: Acute (2) Hyperlipemia Code(s): E78.5 - HYPERLIPIDEMIA, UNSPECIFIED Status: Acute (3) Right hip pain Code(s): M25.551 - PAIN IN RIGHT HIP Status: Acute - Plan pt's egd normal, rbc scan normal. will undergo colonoscopy in am. pt has chronic hip pain. will order pain meds. 03/26 will check hh now since pt is symptomatic. may have to give him one unit of blood. will watch him one more night. colonoscopy is normal.
[2020-03-27 08:18] VITALS: BP 132/62; TEMP 98
[2020-03-27] MEDS: Atorvastatin Calcium 20 MG TAB PO SCH (08:36)
[2020-03-27 09:59] LABS: #Eosinphils 0.3 thou/uL (0.0-0.7); #Lymphocytes 1.3 thou/uL (1.20-3.40); #Monocytes 0.6 thou/uL (0.11-0.59); %Basophils 0.8 % (0.0-1.0); %Eosinophils 4.2 % (0.0-10.0); %Lymphocytes 21.2 % (21.0-51.0); %Monocytes 9.1 % (0.0-10.0); %Neutrophils 64.7 % (42.0-75.0); Hemoglobin 9.1 g/dL (14.0-18.0); Mean Corpuscular HGB CONC 34.8 g/dL (32.0-36.0); Mean Corpuscular Volume 97.6 fL (78.0-98.0); Mean Platelet Volume 8.4 fL (7.4-10.4); Platelet Count 200 thou/uL (130-400); RBC Distribution Width 15.2 % (11.5-14.5); Red Blood Cell (RBC) Count 2.67 mill/uL (4.70-6.10); White Blood Cell (WBC) Count 6.2 thou/uL (4.8-10.8)
[2020-03-27 10:09] LABS: Anion Gap 12 mmol/L (10-20); BUN (Urea Nitrogen) 9 mg/dL (8.4-25.7); Calc. Creatinine Clearance 81 mL/min (70-130); Calcium 8.4 mg/dL (7.8-10.44); Carbon Dioxide 26 mmol/L (23-31); Chloride 107 mmol/L (98-107); Estimated GFR-MDRD 90; Glucose 109 mg/dL (83-110); Potassium 3.5 mmol/L (3.5-5.1); Sodium 141 mmol/L (136-145)
[2020-03-27] MEDS ORDERED: Polyethylene Glycol 3350 17 GM Packet PO SCH (11:30)
[2020-03-27] MEDS ORDERED: Senokot S 8.6-50 MG TAB PO SCH ×2 (11:30→21:00)
[2020-03-27] MEDS ORDERED: Bisacodyl 10 MG SUPP PR SCH (11:30)
--- NOTE | 2020-03-27 12:11 | PRG ---
DATE OF SERVICE: 03/27/2020 SUBJECTIVE: Mr. Cortés has had no bowel movement since Monday. He is a bit concerned about this, but otherwise has no pain and no further overt bleeding. OBJECTIVE: VITAL SIGNS: Temperature 98.0, pulse 82, and blood pressure 132/62. GENERAL: He is in no acute distress. Alert and oriented x3. LUNGS: Clear to auscultation bilaterally. HEART: Regular rate and rhythm without murmur. ABDOMEN: Soft, nontender, and nondistended. Bowel sounds are present. EXTREMITIES: No lower extremity edema. LABORATORY DATA: Hemoglobin is 9.1 today. IMPRESSION: 1. Anemia of acute blood loss. His hemoglobin responded appropriately to transfusion yesterday. His dizziness has resolved. 2. Upper and lower endoscopy have been negative for bleeding source. 3. Concerned that he has not had a bowel movement since his colonoscopy. This is likely normal; however, we will give him a Dulcolax suppository to help things along. 4. Anticipate discharge home today. 5. Follow up in GI clinic to schedule capsule endoscopy. Job ID: [id number]
[2020-03-28] MEDS ORDERED: Polyethylene Glycol 3350 17 GM Packet PO SCH (09:00)
--- NOTE | 2020-03-29 23:32 | PQF ---
CLINICAL DOCUMENTATION CLARIFICATION FORM: Dear : Shelley Norris Date / Time: 03/29/20 8007 Please exercise your independent, professional judgment in responding to the clarification form. Clinical indicators are provided on the bottom of this form for your review Please check appropriate box(es): [ ] Protein Calorie Malnutrition: [ ] Mild [ x] Moderate [ ] Severe [ ] Other Malnutrition (please specify) __ [ ] Underweight without malnutrition [ ] Cachexia [ ] Other diagnosis [ ] Unable to determine In addition, please specify: Present on Admission (POA): [ x ] Yes [ ] No [ ] Unable to determine Physician Signature: Date/Time: For continuity of documentation, please document condition throughout progress notes and discharge summary. Thank You. To be completed by CDI/Coding staff for physician review: Present Clinical Indicators - Signs / Symptoms / Labs Results and Location in Medical Record [X] BP 98/52, Pulse 91, Resp 18, Temp 97.7 Vital signs 03/23 [X] Total Protein 5.5, Albumin 3.8, Globulin 1.7, ratio 2.2 Laboratory Chemistry 03/23 [X] Total Protein 4.7, Albumin 3.3, Globulin 1.4, ratio 2.4 Laboratory Chemistry 03/24 [X] BMI 27.0 Nutritional Assessment 03/24 [X] Weight loss over 9 months Nutritional Assessment 03/24 [X] poor oral intake/appetite Nutritional Assessment 03/24 Present Risk Factors Results and Location in Medical Record [X] 79 year-old Male H&P p1 03/23 [facility] [employer] SYSTEM [employer]INE[employer] [X] HTN H&P p1 03/23 [facility] [employer] SYSTEM [employer] [X] HLD H&P p1 03/23 [facility] [employer] SYSTEM ENGINE[employer] [X] GI bleeding H&P p3 03/23 [facility] [employer] SYSTEM [employer] [X] Acute anemia blood loss H&P p3 03/23 [facility] [employer] SYSTEM [employer] Present Treatments Results and Location in Medical Record [X] Dietary consult Nutritional Assessment 03/24 [X] Nutritional supplements Nutritional Assessment 03/24 [X] Appetite stimulant - medication Nutritional Assessment 03/24 [X] Weight monitoring Nutritional Assessment 03/24 [X] Intake monitoring Nutritional Assessment 03/24 CDS/Pay Station Attendant Signature: Violeta Vasquez Phone #: [phone] Date/Time: 03/29/20 2331 Moderate Malnutrition (in acute illness) ? Energy Intake: <75% of estimated energy requirement for > 7 days ? Weight Loss: 1-2%/1 week; 5%/ 1 month; 7.5%/3 months ? Other: mild body fat loss; mild muscle mass loss; mild fluid accumulation; Severe Malnutrition (in acute illness) ? Energy Intake: ? 50% of estimated energy requirement for ? 5 days ? Weight Loss: >2%/1 week; >5%/1 month; >7.5%/3 months ? Other: moderate body fat loss; moderate muscle mass loss; moderate- severe fluid accumulation; measurably reduced cfd engineer strength Moderate Malnutrition (in chronic illness) ? Energy Intake: <75% of estimated energy requirement for ?1 month ? Weight Loss: 5%/1 month; 7.5%/3 months; 10%/6 months; 20%/1 year ? Other: mild body fat loss; mild muscle mass loss; mild fluid accumulation Severe Malnutrition (in chronic illness) ? Energy Intake: ?75% of estimated energy requirement for ?1 month ? Weight Loss: >5%/1 month; >7.5%/3 months; >10%/6 months; >20%/1 year ? Other: severe body fat loss; severe muscle mass loss; severe fluid accumulation; measurably reduced cfd engineer strength This is a permanent part of the Medical Record [facility]
--- NOTE | 2020-03-30 14:38 | DIS ---
DATE OF ADMISSION: 03/23/2020 DATE OF DISCHARGE: 03/27/2020 DISCHARGE DIAGNOSES: 1. Acute blood loss anemia. 2. Hyperlipidemia. 3. Right hip pain. HOSPITAL COURSE: The patient is an 79-year-old male, who initially presented to the hospital, who was sent from Dr. Moreira's office for generalized weakness and was found to be anemic. He underwent an EGD, colonoscopy, which did not have any significant findings. At this time, his H and H was stable. He received a total of 2 units of PRBCs. His H and H on discharge 9.1 and 26.0. He stated he feels good. He will follow up with GI for a capsule endoscopy. MEDICATIONS: His home medications will be; 1. Tramadol. 2. Atorvastatin. 3. Protonix. PHYSICAL EXAMINATION: VITAL SIGNS: Temperature 98.0, pulse 82, sats 97% on room air, and blood pressure 132/62. GENERAL: He is awake, alert, and oriented x3. Does not appear in distress. CV: S1 and S2 present. No murmurs, rubs, or gallops. ABDOMEN: Soft, nontender. Bowel sounds are present x2. Again, he will be discharged home. He will follow up with primary and GI. He was asked to not take any meloxicam, ibuprofen, or any NSAIDs. He stated that his pain has been well controlled of the right hip with tramadol and regular Tylenol. Job ID: [id number]
== END 2020-03-27 14:53 | disposition home or self-care (01) | DRG 378 ==
LOC: T4-A 15:18 → OBSVTOIN 17:30
PROVIDERS: ADMIT Internal Medicine; ATTEND Internal Medicine
PROC: 30233N1 Transfusion of Nonautologous Red Blood Cells into Peripheral Vein, Percutaneous Approach (ICD-10-PCS; principal; 2020-03-24)
PROC: 0DJ08ZZ Inspection of Upper Intestinal Tract, Via Natural or Artificial Opening Endoscopic (ICD-10-PCS; 2020-03-24)
PROC: 0DBM8ZZ Excision of Descending Colon, Via Natural or Artificial Opening Endoscopic (ICD-10-PCS; 2020-03-25)
PROC: 0DBL8ZZ Excision of Transverse Colon, Via Natural or Artificial Opening Endoscopic (ICD-10-PCS; 2020-03-25)
DX: K92.1 Melena (principal); D62 Acute posthemorrhagic anemia; E44.0 Moderate protein-calorie malnutrition; I10 Essential (primary) hypertension; E78.5 Hyperlipidemia, unspecified; Z96.653 Presence of artificial knee joint, bilateral; M19.90 Unspecified osteoarthritis, unspecified site; K57.30 Diverticulosis of large intestine without perforation or abscess without bleeding; K63.5 Polyp of colon; G89.29 Other chronic pain; M25.551 Pain in right hip; Z11.59 Encounter for screening for other viral diseases; Z87.891 Personal history of nicotine dependence; Z88.0 Allergy status to penicillin; Z86.73 Personal history of transient ischemic attack (TIA), and cerebral infarction without residual deficits; Z90.49 Acquired absence of other specified parts of digestive tract; Z79.899 Other long term (current) drug therapy; Z79.1 Long term (current) use of non-steroidal anti-inflammatories (NSAID); Z86.010 Personal history of colon polyps; Z68.27 Body mass index [BMI] 27.0-27.9, adult
CPT/HCPCS: 36415; 36430; 78278; 80048; 80053; 81001; 82728; 83540; 83550; 85025; 85610; 85730; 86850; 86900; 86901; 87635; 88305; 93005; 93010; A9604; C9113; J2270; J2405; J2704; P9016; U0003

== ENCOUNTER 2021-09-06 10:38 | Outpatient (CLI) | payer MEDICARE | END 2021-09-06 10:39 | disposition home or self-care (01) | LOC: TBSIIMAG 10:38 | PROVIDERS: ATTEND Specialist | DX: M51.17 Intervertebral disc disorders with radiculopathy, lumbosacral region (principal); M47.27 Other spondylosis with radiculopathy, lumbosacral region; M47.816 Spondylosis without myelopathy or radiculopathy, lumbar region | CPT/HCPCS: 72148 ==

== ENCOUNTER 2023-01-02 09:03 | Outpatient (CLI) | payer MEDICARE | END 2023-01-02 09:04 | disposition home or self-care (01) | LOC: CT 09:03 | PROVIDERS: ATTEND Physician Assistant Medical | DX: R10.32 Left lower quadrant pain (principal); K57.30 Diverticulosis of large intestine without perforation or abscess without bleeding; R91.8 Other nonspecific abnormal finding of lung field | CPT/HCPCS: 74177; 82565 ==

== ENCOUNTER 2023-01-06 13:09 | Outpatient (CLI) | payer MEDICARE ==
[~2023-01-06 13:09] MED LIST: Iopamidol 370 76% 100 ML VIAL ONE
== END 2023-01-06 13:10 | disposition home or self-care (01) ==
LOC: CT 13:09
PROVIDERS: ATTEND Physician Assistant Medical
DX: R91.1 Solitary pulmonary nodule (principal)
CPT/HCPCS: 71260; 82565